=== PATIENT | female | born 1980 | race Caucasian/White ===

== ENCOUNTER 2017-03-14 09:29 | Emergency (ER) | payer OTHER ==
[2017-03-14 09:49] VITALS: RESP 18
--- NOTE | 2017-03-14 10:34 | ED ---
General Adult HPI - General Chief complaint: Extremity Injury, Lower Stated complaint: rt knee pain Time Seen by Provider: 03/14/17 10:17 Source: patient, family, RN notes reviewed Mode of arrival: wheelchair Limitations: no limitations - History of Present Illness Initial comments: Patient 37-year-old female significant past medical history for chronic knee pain, who presents emergency room today with a chief complaint of increased right-sided knee pain. She does admit that she's been dealing with pain on and off over the last year. She does admit that recently she's noticed is been more swelling to knee each day. She states that she comes home and when she wakes up in the morning swelling seems to go away but as she works at the day swelling increases once again. She does admit to increased pain is worse with certain movements of flexion and extension. She admits that she's had multiple surgeries on this knee in the past. She states she's been trying follow-up with her surgeon. She states she needs to see her PCP first and has an appointment scheduled next week. Patient denies any other complaints or symptoms. Patient denies any recent fever, chills, shortness of breath, chest pain, back pain, abdominal pain, nausea or vomiting, numbness or tingling, dysuria or hematuria, constipation or diarrhea, headaches or visual changes, or any other complaints. - Related Data Home Medications Medication Instructions Recorded Confirmed traMADol HCL [Tramadol HCl] 50 mg PO TID PRN 02/10/15 03/14/17 Baclofen [Lioresal] 20 mg PO BID 03/14/17 03/14/17 Cyanocobalamin (Vitamin B-12) 1,000 mcg PO DAILY 03/14/17 03/14/17 [Vitamin B-12] Gabapentin [Neurontin] 400 mg PO TID 03/14/17 03/14/17 Ibuprofen [Motrin] 800 mg PO TID PRN 03/14/17 03/14/17 Allergies Allergy/AdvReac Type Severity Reaction Status Date / Time raspberry Allergy Rash/Hives Verified 03/14/17 10:33 bee pollen [Bee Pollen] AdvReac Unknown Verified 03/14/17 10:33 Review of Systems ROS Statement: Those systems with pertinent positive or pertinent negative responses have been documented in the HPI. ROS Other: All systems not noted in ROS Statement are negative. Past Medical History Past Medical History: Fibromyalgia Additional Past Medical History / Comment(s): Digenerative disc disorder History of Any Multi-Drug Resistant Organisms: MRSA Date of last positivie culture/infection: 2008 MDRO Source:: hand wound Past Surgical History: Cholecystectomy, Hernia Repair, Orthopedic Surgery, Tubal Ligation Past Psychological History: No Psychological Hx Reported Smoking Status: Never smoker Past Alcohol Use History: None Reported Past Drug Use History: None Reported General Exam - General Exam Comments Initial Comments: General: The patient is awake and alert, in no distress, and does not appear acutely ill. Neck: The neck is supple, there is no tenderness or JVD. Cardiovascular: There is a regular rate and rhythm. No murmur, rub or gallop is appreciated. Respiratory: Lungs are clear to auscultation, respirations are non-labored, breath sounds are equal. No wheezes, stridor, rales, or rhonchi. Musculoskeletal: pain does have normal appearance of the right knee no obvious swelling bruising or deformity. Patient shows good range of motion with flexion and extension. Strength is 5/5. Sensation intact. Pulses equal bilaterally 2+. Patient does have mild tenderness with stress. Negative varus. Negative Gerson's. Neurological: A&O x 3. CN II-XII intact, There are no obvious motor or sensory deficits. Coordination appears grossly intact. Speech is normal. Skin: Skin is warm and dry and no rashes or lesions are noted. Psychiatric: Normal mood and affect. Limitations: no limitations Course Vital Signs 03/14/17 09:42 Temperature 98.5 F Pulse Rate 95 Respiratory 18 Rate Blood Pressure 147/77 O2 Sat by Pulse 100 Oximetry Medical Decision Making - Medical Decision Making Patient's x-rays reviewed and are negative. Patient advised continued ice elevate the affected area use knee brace that she has at home and follow-up with her family doctor and orthopedics. Advised continue with her tramadol and ibuprofen. Disposition Clinical Impression: Knee pain Disposition: HOME SELF-CARE Condition: Good Instructions: Knee Pain (ED) Additional Instructions: Please continue to use medication of tramadol and ibuprofen as discussed. please continue to ice elevate the affected area and use knee brace. Please follow-up the family doctor and orthopedics. Please return for any other concerns. Referrals: Aubree Kohli MD [Primary Care Provider] - 1-2 days Time of Disposition: 12:06
--- NOTE | 2017-03-14 11:25 | XR ---
EXAMINATION TYPE: XR knee complete RT DATE OF EXAM ORDERED: 03/14/2017 HISTORY: Pain. COMPARISON: None. FINDINGS: Joint spaces are well maintained. There is no chondrocalcinosis. There is no fracture, dis location or joint effusion. IMPRESSION: NORMAL RIGHT KNEE.
[2017-03-14 12:50] VITALS: BP 152/85; PULSE 85; TEMP 97.6
== END 2017-03-14 12:50 | disposition home or self-care (01) ==
LOC: EC 09:29
DX: M25.561 Pain in right knee (principal); M79.89 Other specified soft tissue disorders; M79.7 Fibromyalgia; Z86.14 Personal history of Methicillin resistant Staphylococcus aureus infection; Z79.899 Other long term (current) drug therapy; Z91.018 Allergy to other foods; Z91.030 Bee allergy status
CPT/HCPCS: 99283

== ENCOUNTER 2018-05-08 21:13 | Emergency (ER) | payer OTHER ==
[2018-05-08 21:36] VITALS: BP 123/76; PULSE 86; RESP 18; TEMP 98.3
[2018-05-08] MEDS ORDERED: predniSONE 20 MG TAB PO STA (23:12)
--- NOTE | 2018-05-08 23:14 | ED ---
Skin/Abscess/FB HPI - General Chief complaint: Skin/Abscess/Foreign Body Stated complaint: Arm Rash Time Seen by Provider: 05/08/18 22:26 Source: patient, RN notes reviewed Mode of arrival: ambulatory Limitations: no limitations - History of Present Illness Initial comments: 38-year-old female with past medical history of rheumatoid arthritis who presents today for chief complaint of rash. Patient states that she thinks she was exposed to poison pamela or poison oak, she was doing yard work 3 days ago, and then noticed an area in the middle of her back where she had brushed up against a plant, that had blisters and was itchy. Patient had been washing her body with different washcloths and changing frequently to not spread the infection, using Benadryl and camomile in order to relieve symptoms. Patient states that these were not working and she was bothered by the rash so she presented to the emergency department. Patient denies overlying erythema, tenderness or increasing pain at the site of the rash. Patient denies any fever or chills. In addition patient presented emergency department in stable condition, afebrile. Patient denies any recent shortness of breath, chest pain, back pain, abdominal pain, nausea or vomiting, numbness or tingling, dysuria or hematuria, constipation or diarrhea, headaches or visual changes, or any other complaints. - Related Data Home Medications Medication Instructions Recorded Confirmed traMADol HCL [Tramadol HCl] 50 mg PO TID PRN 02/10/15 05/08/18 Gabapentin [Neurontin] 400 mg PO TID 03/14/17 05/08/18 Ibuprofen [Motrin] 800 mg PO TID PRN 03/14/17 05/08/18 ALPRAZolam [Xanax] 0.5 mg PO BID 05/08/18 05/08/18 Topiramate [Topamax] 100 mg PO DAILY 05/08/18 05/08/18 Previous Rx's Medication Instructions Recorded predniSONE 20 mg PO DAILY 4 Days #4 tab 05/08/18 Allergies Allergy/AdvReac Type Severity Reaction Status Date / Time raspberry Allergy Rash/Hives Verified 05/08/18 22:28 bee pollen [Bee Pollen] AdvReac Unknown Verified 05/08/18 22:28 Review of Systems ROS Statement: Those systems with pertinent positive or pertinent negative responses have been documented in the HPI. ROS Other: All systems not noted in ROS Statement are negative. Past Medical History Past Medical History: Fibromyalgia, Rheumatoid Arthritis (RA) Additional Past Medical History / Comment(s): Digenerative disc disorder History of Any Multi-Drug Resistant Organisms: MRSA Date of last positivie culture/infection: 2008 MDRO Source:: hand wound Past Surgical History: Cholecystectomy, Hernia Repair, Orthopedic Surgery, Tubal Ligation Past Psychological History: Anxiety Smoking Status: Never smoker Past Alcohol Use History: None Reported Past Drug Use History: None Reported General Exam - General Exam Comments Initial Comments: General: The patient is awake and alert, in no distress, and does not appear acutely ill. Eye: Pupils are equal, round and reactive to light, extra-ocular movements are intact. No nystagmus. There is normal conjunctiva bilaterally. No signs of icterus. Ears, nose, mouth and throat: There are moist mucous membranes and no oral lesions. Neck: The neck is supple, there is no tenderness or JVD. Cardiovascular: There is a regular rate and rhythm. No murmur, rub or gallop is appreciated. Respiratory: Lungs are clear to auscultation, respirations are non-labored, breath sounds are equal. No wheezes, stridor, rales, or rhonchi. Neurological: A&O x 3. CN II-XII intact, There are no obvious motor or sensory deficits. Coordination appears grossly intact. Speech is normal. Skin: Skin is warm and dry. Raised vesicular rash and contact pattern of her mid back spreading towards the left shoulder, there is also an area superior to the left axilla area. Some areas of excoriation, however no overlying erythema or surrounding cellulitis. Psychiatric: Cooperative, appropriate mood & affect, normal judgment. Limitations: no limitations Course Vital Signs 05/08/18 21:34 Temperature 98.3 F Pulse Rate 86 Respiratory 18 Rate Blood Pressure 123/76 O2 Sat by Pulse 100 Oximetry Medical Decision Making - Medical Decision Making 38-year-old female with chief complaint of rash, concern for possible poison pamela after contact exposure to plants in her yard. Patient complains of itching , and vesicular rash to mid back extending toward left shoulder, and small area superior to the left axilla. The rash appears to be in a contact pattern and consistent with the rash of a plant resin exposure. There is no signs of secondary infection such as cellulitis, abscess or erysipelas. Patient is afebrile. Total body surface affected is about 3%. At this time since patient states that topical ointments and Benadryl are not sufficient for symptom relief , that she would benefit from an oral steroid. Case is discussed in detail with Dr. Hammond, who agrees with the impression and plan. Patient was educated on the signs of secondary infection, and proper precautions to limit spread of rash. Patient was discharged with 20 mg of prednisone once daily for 4 days With follow-up with primary care provider in one to 2 days. Patient agreed plan as discharge in stable condition Disposition Clinical Impression: Poison pamela dermatitis Disposition: HOME SELF-CARE Condition: Good Instructions: Poison Pamela (ED) Additional Instructions: Please use medication as discussed. Please follow-up with family doctor in the next 2 days of symptoms have not improved. Please return to emergency room if the symptoms increase or worsen or for any other concerns. Prescriptions: predniSONE 20 mg PO DAILY 4 Days #4 tab Is patient prescribed a controlled substance at d/c from ED?: No Referrals: Adrien Jonas MD [Primary Care Provider] - 1-2 days Time of Disposition: 23:13
== END 2018-05-08 23:25 | disposition home or self-care (01) ==
LOC: EC 21:13
DX: L23.7 Allergic contact dermatitis due to plants, except food (principal); M79.7 Fibromyalgia; M06.9 Rheumatoid arthritis, unspecified; F41.9 Anxiety disorder, unspecified; Z86.14 Personal history of Methicillin resistant Staphylococcus aureus infection; Z98.890 Other specified postprocedural states; Z79.899 Other long term (current) drug therapy; Z91.018 Allergy to other foods; Z91.030 Bee allergy status
CPT/HCPCS: 99282; J7512

== ENCOUNTER → 2018-11-20 | Outpatient (CLI) | payer OTHER ==
[2018-11-20 11:54] LABS: Basophils # (A) 0.1 k/uL (0-0.2); Basophils % (A) 1 %; Eosinophils # (A) 0.2 k/uL (0-0.7); Eosinophils % (A) 3 %; HGB 13.3 gm/dL (11.4-16.0); Lymphocytes # (A) 2.2 k/uL (1.0-4.8); Lymphocytes % (A) 31 %; MCH 28.4 pg (25.0-35.0); MCHC 34.1 g/dL (31.0-37.0); MCV 83.4 fL (80.0-100.0); Mean Platelet Volume 7.1; Monocytes # (A) 0.3 k/uL (0-1.0); Monocytes % (A) 4 %; Neutrophils # (A) 4.2 k/uL (1.3-7.7); Neutrophils % (A) 59 %; Platelet Count 258 k/uL (150-450); RBC 4.68 m/uL (3.80-5.40); RDW 13.4 % (11.5-15.5); WBC 7.1 k/uL (3.8-10.6)
[2018-11-20 18:46] LABS: Anion Gap 4.5 mmol/L (4.00-12.00); Calcium 9.3 mg/dL (8.7-10.3); Carbon Dioxide 30.5 mmol/L (21.6-31.8); Potassium 4.1 mmol/L (3.5-5.5)
[2018-11-20 22:15] LABS: Hemoglobin A1C 5.8 % (4.0-6.0)
== END ==
LOC: LABWHC1 11:07
PROVIDERS: ATTEND Orthopaedic Surgery
DX: Z01.818 Encounter for other preprocedural examination (principal); Z01.812 Encounter for preprocedural laboratory examination
CPT/HCPCS: 36415; 80048; 82040; 83036; 85025; 87070; 93005

== ENCOUNTER 2018-11-21 15:44 | Emergency (ER) | payer OTHER ==
[2018-11-21 15:48] VITALS: RESP 18
[2018-11-21] MEDS ORDERED: BENZONATATE 100 MG CAP PO STA (16:22)
[2018-11-21] MEDS ORDERED: DEXAMETHASONE 4 MG TAB PO STA (16:25)
[2018-11-21] MEDS ORDERED: IPRATROPIUM-ALBUTEROL 3 ML NEB INHALATION STA (16:25)
--- NOTE | 2018-11-21 16:32 | ED ---
General Adult HPI - General Chief complaint: Upper Respiratory Infection Stated complaint: cold symptoms Source: patient, RN notes reviewed Mode of arrival: ambulatory Limitations: no limitations - History of Present Illness Initial comments: Patient is a 38-year-old female who presents to the emergency department with complaint of cough productive of green mucus, runny nose, and congestion for 3 weeks. She also states that she had a sore throat but that it has been improving. Also complains of some shortness of breath with activity; none at rest. 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 Denies any history of lung conditions or history of smoking. Patient denies any recent fever, chills, chest pain, back pain, abdominal pain, nausea or vomiting, numbness or tingling , headaches or visual changes, or any other complaints. - Related Data Home Medications Medication Instructions Recorded Confirmed traMADol HCL [Tramadol HCl] 50 mg PO TID PRN 02/10/15 05/08/18 Gabapentin [Neurontin] 400 mg PO TID 03/14/17 05/08/18 Ibuprofen [Motrin] 800 mg PO TID PRN 03/14/17 05/08/18 ALPRAZolam [Xanax] 0.5 mg PO BID 05/08/18 05/08/18 Topiramate [Topamax] 100 mg PO DAILY 05/08/18 05/08/18 Previous Rx's Medication Instructions Recorded predniSONE 20 mg PO DAILY 4 Days #4 tab 05/08/18 Azithromycin [Zithromax Z-pack] 0 mg PO DIRECTED #6 tab 11/21/18 Allergies Allergy/AdvReac Type Severity Reaction Status Date / Time raspberry Allergy Rash/Hives Verified 11/21/18 15:48 bee pollen [Bee Pollen] AdvReac Unknown Verified 11/21/18 15:48 Review of Systems ROS Statement: Those systems with pertinent positive or pertinent negative responses have been documented in the HPI. ROS Other: All systems not noted in ROS Statement are negative. Past Medical History Past Medical History: Fibromyalgia, Rheumatoid Arthritis (RA), Seizure Disorder Additional Past Medical History / Comment(s): Digenerative disc disorder History of Any Multi-Drug Resistant Organisms: MRSA Date of last positivie culture/infection: 2008 MDRO Source:: hand wound Past Surgical History: Cholecystectomy, Hernia Repair, Orthopedic Surgery, Tubal Ligation Past Psychological History: Anxiety Smoking Status: Never smoker Past Alcohol Use History: None Reported Past Drug Use History: None Reported General Exam Limitations: no limitations General appearance: alert, in no apparent distress Head exam: Present: atraumatic, normocephalic Eye exam: Present: normal appearance, PERRL ENT exam: Present: normal oropharynx, TM's normal bilaterally, normal external ear exam Neck exam: Present: normal inspection, lymphadenopathy Respiratory exam: Present: normal lung sounds bilaterally. Absent: wheezes, rales, rhonchi Cardiovascular Exam: Present: regular rate, normal rhythm Neurological exam: Present: alert, oriented X3 Skin exam: Present: warm, dry Course Vital Signs 11/21/18 11/21/18 11/21/18 15:46 16:35 16:45 Temperature 98.1 F Pulse Rate 94 94 94 Respiratory 18 Rate Blood Pressure 151/95 O2 Sat by Pulse 100 Oximetry Medical Decision Making - Medical Decision Making Tessalon Perles, dexamethasone, and DuoNeb ordered here. Influenza A and B are negative. Rapid strep is negative. Chest x-ray is negative. Will prescribe Z- pack. Case discussed in detail with attending physician Dr. Easley. - Lab Data Lab Results 11/21/18 11/21/18 Range/Units 16:55 16:55 Influenza Type A RNA Not Detected (Not Detectd) Influenza Type B (PCR) Not Detected (Not Detectd) Group A Strep Rapid Negative (Negative) Disposition Clinical Impression: Respiratory infection Disposition: HOME SELF-CARE Condition: Good Instructions (If sedation given, give patient instructions): Acute Cough (ED) Additional Instructions: Follow-up with your PCP in 1 to 2 days. Please take antibiotics as prescribed. Return to the emergency department if your symptoms worsen or other concerns. Prescriptions: Azithromycin [Zithromax Z-pack] 0 mg PO DIRECTED #6 tab Is patient prescribed a controlled substance at d/c from ED?: No Referrals: Adrien Jonas MD [Primary Care Provider] - 1-2 days Time of Disposition: 17:58
--- NOTE | 2018-11-21 17:23 | XR ---
EXAMINATION TYPE: XR chest 2V DATE OF EXAM: 11/21/2018 COMPARISON: November 16, 2009 HISTORY: Cough TECHNIQUE: Frontal and lateral views of the chest are obtained. FINDINGS: There is no heart failure nor confluent pneumonic infiltrate. Costophrenic angles are arron r. Bony thorax is intact. IMPRESSION: No active cardiopulmonary disease. Inspiration is decreased compared to old exam.
[2018-11-21 18:53] VITALS: BP 143/77; PULSE 85; TEMP 98.5
== END 2018-11-21 18:53 | disposition home or self-care (01) ==
LOC: EC 15:44
DX: J98.8 Other specified respiratory disorders (principal); M06.9 Rheumatoid arthritis, unspecified; G40.909 Epilepsy, unspecified, not intractable, without status epilepticus; F41.9 Anxiety disorder, unspecified; Z86.14 Personal history of Methicillin resistant Staphylococcus aureus infection; Z79.899 Other long term (current) drug therapy; Z91.030 Bee allergy status; Z91.018 Allergy to other foods
CPT/HCPCS: 94640; 87081; 87430; 87502; 71046; 99284; J8540